=== PATIENT | female | born 1985 | race Hispanic/Latino ===

== ENCOUNTER 2017-12-04 04:02 | Emergency (ER) | payer SELFPAY ==
[~2017-12-04] VITALS: Ht 157.5 cm; Wt 67.6 kg
[2017-12-04] MEDS ORDERED: TOPROL XL25 MG PO (04:23)
[2017-12-04] MEDS ORDERED: TRI (04:33)
[2017-12-04] MEDS ORDERED: ORTHO TRI-CYCL1 EACH PO (04:34)
== END 2017-12-04 05:28 | disposition home or self-care (01) ==
LOC: ED 04:02
DX: N93.9 Abnormal uterine and vaginal bleeding, unspecified (principal); Z95.5 Presence of coronary angioplasty implant and graft; Z88.0 Allergy status to penicillin; Z79.899 Other long term (current) drug therapy
CPT/HCPCS: 81001; 84703; 99283

== ENCOUNTER 2020-06-14 01:53 | Emergency (ER) | payer OTHER ==
[~2020-06-14] VITALS: Ht 157.5 cm; Wt 67.6 kg
[~2020-06-14 01:53] MED LIST: ORTHO TRI-CYCL1 EACH PO; TOPROL XL25 MG PO; TRI
--- OUTSIDE RECORDS SUMMARY | 2020-06-14 01:56 | XMS ---
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 E.Brandon VISIT COUNT (12 MO.) [address] TOTAL 4 NOTE: Visits indicate total known visits. ED/UCC VISIT TRACKING (12 MO.) 06/14/2020 01:53 [facility] [place] TYPE: Emergency COMPLAINT: - ABDOMEN PAIN,VAGINAL BLEEDING 06/14/2020 00:34 [facility] [place] TYPE: Emergency DIAGNOSES: - POSS MISCARRIAGE 6 WKS 06/05/2020 00:04 [facility] [place] TYPE: Emergency DIAGNOSES: - Diarrhea, unspecified - Twin , unable to determine number of placenta and nu - Spotting complicating , first trimester - PREG, SPOTTING, ABD PAIN - Nausea 08/12/2019 22:33 [facility] [place] TYPE: Emergency DIAGNOSES: - Encounter for issue of repeat prescription - Prescription refill INPATIENT VISIT TRACKING (12 MO.) No inpatient visits to display in this time frame [email or web address]
== END 2020-06-14 04:57 | disposition home or self-care (01) ==
LOC: ED 01:53
DX: O20.9 Hemorrhage in early pregnancy, unspecified (principal); O30.041 Twin pregnancy, dichorionic/diamniotic, first trimester; Z88.0 Allergy status to penicillin; Z3A.01 Less than 8 weeks gestation of pregnancy; Z79.899 Other long term (current) drug therapy
CPT/HCPCS: 76801; 76802; 76817; 80048; 81001; 84702; 85025; 86900; 86901; 99284-25

== ENCOUNTER 2024-12-09 21:35 | Emergency (ER) | payer OTHER ==
[~2024-12-09] VITALS: Ht 157.5 cm; Wt 69.9 kg
--- OUTSIDE RECORDS SUMMARY | 2024-12-09 21:43 | XMS ---
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 - 2 Visits in 30 Days - [facility] - 3 Facilities in 90 Days CARE PROVIDERS -, [facility] Dentist: [employer] PHONE: [phone] -Isma- Dentist: Cigar Rol[facility] PHONE: [phone] [facility]/Center: [facility] Current WORKERS CLINIC \F\ [place] ([facility]) <UNAVAIL> PHONE: [phone] [place] [facility] Current PHONE: Unknown [facility] has no Care Guidelines for this patient. EBrittny VISIT COUNT (12 MO.) 1 [facility] [address] TOTAL 3 NOTE: Visits indicate total known visits. ED/UCC VISIT TRACKING (12 MO.) 12/09/2024 21:36 [facility] [place] TYPE: Emergency COMPLAINT: - FLANK PAIN 12/09/2024 00:10 [facility] TYPE: Emergency DIAGNOSES: - abdominal pain 12/08/2024 14:55 [facility] [place] TYPE: Emergency DIAGNOSES: - Calculus of ureter - RIGHT SIDE PAIN NAUSEA INPATIENT VISIT TRACKING (12 MO.) No inpatient visits to display in this time frame [email or web address]
[2024-12-09] MEDS ORDERED: NITROFURANTOIN100 M1 PO (21:45)
[2024-12-09] MEDS ORDERED: TAMSULOSIN HCL0.4 MG PO (21:45)
[2024-12-09] MEDS ORDERED: ONDANSETRON ODT4 MG PO (21:45)
[2024-12-09] MEDS ORDERED: HYDROCODON-ACE1 EA10 PO (21:45)
[2024-12-09] MEDS ORDERED: NALOXONE HCL4 MG NS (21:46)
[2024-12-09 22:00] LABS: BASOPHILS 0.3 % (0-2); EOSINOPHILS 0.5 % (0-6); HEMATOCRIT 36.7 % (35.0-50.0); HEMOGLOBIN 12.6 g/dL (12.0-18.0); LYMPHOCYTES 14.2 % (24-44); MCH 30.4 (27-36); MCHC 34.2 g/dl (30-36); MCV 88.7 fl (81-99); MONOCYTES 6.8 % (0-12); NEUTROPHILS 78.2 % (39-80); PLATELET COUNT 264 K/uL (140-440); RBC 4.14 M/ul (4.3-5.7); RDW 13.4 (10.5-15.0)
[2024-12-09] MEDS ORDERED: LACTATED RINGER'S 1,000 ML IV ONE (22:00)
[2024-12-09] MEDS ORDERED: HYDROmorphone HCL 1 MG/ML SYR IV ONE (22:00)
[2024-12-09] MEDS ORDERED: KETOROLAC TROMETHAMINE 30 MG/ML VIAL IV ONE (22:00)
[2024-12-09] MEDS ORDERED: ondansetron HCL 4 MG/2 ML VIAL IV ONE (22:00)
[2024-12-09 22:15] LABS: ALBUMIN 3.7 g/dL (3.4-5.0); ALBUMIN/GLOBULIN RATIO 0.95 (1.1-2.4); ANION GAP 14.6 (7-21); BILIRUBIN, TOTAL 0.5 mg/dL (0.2-1.0); BUN/CREATININE RATIO 12.96 (6.0-28.6); CALCIUM 8.8 mg/dL (8.5-10.1); CREATININE, SERUM 1.08 mg/dL (0.55-1.02); POTASSIUM 3.6 mmol/L (3.5-5.1); PROTEIN, TOTAL 7.6 g/dL (6.4-8.2)
[2024-12-09] MEDS ORDERED: KETOROLAC TROME10 MG PO (22:38)
[2024-12-09] MEDS ORDERED: PERCOCET 5-3251 EACH PO (22:38)
[2024-12-09 23:00] VITALS: BP 133/70
[2024-12-09] MEDS ORDERED: OXYCODONE/ACETAMINOPHEN 1 TAB HOME.PACK PO ONE (23:00)
== END 2024-12-09 23:00 | disposition home or self-care (01) ==
LOC: ED 21:35
PROVIDERS: Family Medicine
DX: N20.2 Calculus of kidney with calculus of ureter (principal); Z88.0 Allergy status to penicillin; Z79.899 Other long term (current) drug therapy
CPT/HCPCS: 36415; 80053; 84703; 85025; 96374; 96375; 99284-25; J1171; J1885; J2405; J7121